=== PATIENT | male | born 1985 | race Hispanic/Latino ===

== ENCOUNTER 2019-06-10 19:18 | Emergency (ER) | payer SELFPAY ==
[2019-06-10] MEDS ORDERED: Lidocaine 2% w/ Epi 1:200K 10 ML VIAL ONE (19:32)
[2019-06-10] MEDS ORDERED: Adacel (T-DAP) 0.5 ML SYRINGE ONE (19:37)
== END 2019-06-10 20:27 | disposition home or self-care (01) ==
LOC: BURERS 19:18
DX: S61.412A Laceration without foreign body of left hand, initial encounter (principal); Z23 Encounter for immunization; W26.0XXA Contact with knife, initial encounter
CPT/HCPCS: 12002; 90471; 90715

== ENCOUNTER → 2019-06-19 | Emergency (ER) | payer SELFPAY | LOC: BURERS 10:02 | DX: S61.412D Laceration without foreign body of left hand, subsequent encounter (principal); G62.9 Polyneuropathy, unspecified; W26.0XXD Contact with knife, subsequent encounter | CPT/HCPCS: 99283 ==